=== PATIENT | male | born 1995 | race Two or more races ===

== ENCOUNTER 2017-01-31 09:56 | Emergency (ER) | payer MEDICAID ==
[2017-01-31 10:05] VITALS: BP 104/65; PULSE 92; RESP 16; TEMP 99.7; O2SAT 95
--- NOTE | 2017-01-31 10:35 | EDPHY ---
H & P Time Seen by Provider: 01/31/17 10:22 HPI/ROS: CHIEF COMPLAINT: Cold symptoms and sore throat History by patient HISTORY OF PRESENT ILLNESS: 21-year-old boy presents complaining of 2 weeks of sore throat, runny nose and nasal congestion, subjective fevers and cough occasionally productive sputum and sometimes causing him to gag. There is no associated nausea, vomiting or diarrhea. There is no rash. He has not been taking anything at home. He is worried he might have an infection in his throat. It could be painful to swallow but he is able to take oral fluids. REVIEW OF SYSTEMS: As in HPI, and all other systems reviewed and are negative Smoking Status: Never smoked Physical Exam: General Appearance: Alert and no distress. Head: normocephalic, atraumatic, no sinus tenderness Eyes: Pupils equal and round no injection. Ears: TM clear bilat OP: mucus membranes moist, mild diffuse erythema, no tonsillar enlargement, no exudates, no stridor or drooling, no hot potato voice Neck: no meningismus, no cervical nodes, no submandibular nodes Respiratory: Chest is nontender, lungs are clear to auscultation. Cardiac: regular rate and rhythm. Gastrointestinal: Abdomen is soft and nontender, no masses, bowel sounds normal. Musculoskeletal: Neck is supple and nontender. Extremities have full range of motion and are nontender. Skin: No rashes or lesions. Constitutional: Initial Vital Signs Temperature (C) 37.6 C 01/31/17 09:58 Heart Rate 92 01/31/17 09:58 Respiratory Rate 16 01/31/17 09:58 Blood Pressure 104/65 01/31/17 09:58 O2 Sat (%) 95 01/31/17 09:58 O2 Delivery Mode Room Air Allergies/Adverse Reactions: No Known Allergies Allergy (Verified 01/31/17 10:05) Home Medications: Medication Instructions Recorded Albuterol Hfa Anes Only [Proair 03/12/14 Hfa Icu (*)] Albuterol [Proventil Neb] 3 ml IH QID PRN #1 box 03/12/14 Fluticasone/Salmeterol [Advair Hfa 03/12/14 115-21 Mcg Inhaler] MDM/Departure - [facility] ED Course/Re-evaluation: 21-year-old boy presents with upper respiratory infected symptoms. There is no evidence of systemic toxicity or bacterial illness. We discussed conservative home measures and patient was given reassurance. - Depart Disposition: Home, Routine, Self-Care Clinical Impression: Upper respiratory infection, acute Condition: Good Instructions: Upper Respiratory Infection (ED) Additional Instructions: You were seen by Dr. Charlene Lanier today. Return for any worsening or new concerns. Take pseudoephedrine for nasal congestion. Take ibuprofen 600 mg 4 times a day and/or acetaminophen (Tylenol) 650 mg every 4 hours for sore throat. Drink plenty of fluids and get rest. Referrals: ABHILASH RADFORD,. [Primary Care Provider] - As per Instructions
== END 2017-01-31 10:49 | disposition home or self-care (01) ==
LOC: CED 09:56
DX: J06.9 Acute upper respiratory infection, unspecified (principal)
CPT/HCPCS: 87880-PO